=== PATIENT | male | born 1975 | race African-American/Black ===

== ENCOUNTER 2017-03-06 07:09 | Emergency (ER) | payer OTHER ==
[2017-03-06 07:14] VITALS: BP 139/80; PULSE 88; TEMP 97.9; BMI 31.4
--- NOTE | 2017-03-06 07:35 | PDOC ---
History of Present Illness - General Chief Complaint: Pain, Acute Stated Complaint: LEFT HIP PIAN Time Seen by Provider: 03/06/17 07:24 - History of Present Illness Initial Comments: 41 year old healthy male with PMH of HTN and HLD presenting with left hip pain / tightness since 18:00 on the day before presentation. He has had this pain in the past but never with this severity or length of time. His pain always happen after his long car rides (typically about 70 miles per day in a smaller vehicle - [employer]- and the gentleman is approximately 6'2"). He denies any hip trauma or specific inciting event except for his typical 70 mile ride yesterday. He did not try any medicine, stretching, or heat therapy. He is on a Statin for his HLD but has been on this for the past 3-4 months and denies any myalgias besides his hip pain. Denies fevers, chills, nausea, vomiting, change in urine, chest pain, or other symptoms. 03/06/17 08:00 Past History - Past Medical History Allergies/Adverse Reactions: Allergies Allergy/AdvReac Type Severity Reaction Status Date / Time No Known Allergies Allergy Verified 03/06/17 07:11 Home Medications: Ambulatory Orders Atorvastatin Ca [Lipitor] 20 mg PO HS 03/06/17 Hydrochlorothiazide [Hctz -] 25 mg PO DAILY 03/06/17 Naproxen [Naprosyn -] 500 mg PO BID PRN #20 tablet 03/06/17 HTN: Yes Hypercholesterolemia: Yes - Psycho/Social/Smoking Cessation Hx Anxiety: No Suicidal Ideation: No Smoking History: Current every day smoker Have you smoked in the past 12 months: Yes Number of Cigarettes Smoked Daily: 2 Information on smoking cessation initiated: No Hx Alcohol Use: No Drug/Substance Use Hx: No Substance Use Type: None Review of Systems - Review of Systems Constitutional: No: Chills, Diaphoresis, Fever HEENTM: No: Blurred Vision, Recent change in vision, Double Vision Respiratory: No: Cough, Shortness of Breath Cardiac (ROS): No: Chest Pain, Edema, Chest Tightness ABD/GI: No: Constipated, Diarrhea, Nausea, Vomiting : No: Burning, Dysuria, Discharge Musculoskeletal: Yes: Muscle Pain. No: Back Pain, Joint Pain Integumentary: No: Bruising, Erythema, Lesions Neurological: No: Numbness, Paresthesia, Pre-Existing Deficit, Tremors *Physical Exam - Vital Signs Last Vital Signs Temp Pulse Resp BP Pulse Ox 97.9 F 88 18 139/80 98 03/06/17 07:11 03/06/17 07:11 03/06/17 07:11 03/06/17 07:11 03/06/17 07:11 - Physical Exam General Appearance: Yes: Nourished, Appropriately Dressed. No: Apparent Distress HEENT: positive: EOMI, LIANNA, Normal ENT Inspection Neck: positive: Trachea midline, Normal Thyroid, Supple. negative: Tender, Rigid Respiratory/Chest: positive: Lungs Clear, Normal Breath Sounds. negative: Chest Tender, Respiratory Distress, Accessory Muscle Use Cardiovascular: positive: Regular Rhythm, Regular Rate, Edema. negative: S1, S2 Gastrointestinal/Abdominal: positive: Normal Bowel Sounds, Flat, Soft. negative : Tender, Organomegaly Musculoskeletal: positive: Normal Inspection, Other (Full range of motion in left hip but delay of full extension, flexion, abduction, and adduction at the hip due to tighthness at the hip and pain. However, there was ease of movement after initial stretch at hip.). negative: CVA Tenderness, Muscle Spasm Extremity: positive: Normal Inspection, Normal Range of Motion (Per above) Integumentary: positive: Normal Color, Dry Neurologic: positive: Fully Oriented, Alert, Normal Mood/Affect Medical Decision Making - Medical Decision Making Healthy 41 year old male presenting with left hip pain and tightness after a long car ride. this is most likely a tendinitis vs. muscular spasm/ tightness given the pathophysiology of the injury (long car rides in a small ride in a small car). This is possibly myalgias from his statin use but does not quite match the description and given he has had this pain transiently after each long car ride, this is most likely more consistent with a muscular strain/ tendinitis. To further support this, his symptoms resolved after toradol 30 IV. He was discharged with a prescription for Naproxen and same day appointment with his PCP. 03/06/17 09:20 *DC/Admit/Observation/Transfer Diagnosis at time of Disposition: Hip tendinitis Qualifiers: Qualified Code(s): M76.892 - Other specified enthesopathies of left lower limb , excluding foot - Discharge Dispostion Disposition: HOME Condition at time of disposition: Stable - Prescriptions Prescriptions: Naproxen [Naprosyn -] 500 mg PO BID PRN #20 tablet PRN Reason: Pain - Referrals Referrals: Ralph Lynn MD [Staff Physician] - - Patient Instructions Printed Discharge Instructions: Tendonitis (Alternative Therapy), DI for Tendinitis Additional Instructions: Take 500 mg naproxen every 12 hours as needed for pain. Heat pack as needed. Follow up with your doctor and orthopedics. - Attestations Physician Attestion: I, Dr. Meme Maurer, attest that this document has been prepared under my direction and personally reviewed by me in its entirety. I further attest, that it accurately reflects all work, treatment, procedures and medical decision -making performed by me. 03/06/17 09:29
--- NOTE | 2017-03-06 08:15 | PDOC ---
Attending Attestation - Resident Resident Name: Meme Maurer - ED Attending Attestation I have performed the following: I have examined & evaluated the patient, The case was reviewed & discussed with the resident, I agree w/resident's findings & plan, Exceptions are as noted - HPI HPI: 03/06/17 08:10 41-year-old male with past medical history of hypertension, hyperlipidemia presents with left hip pain since yesterday. Patient reports that he was started feel tightness in his left hip worsened with flexion and movement. States that he was stiffening up after he was stepping out of his car. Denies injuries or fall. - Physicial Exam PE: 03/06/17 08:15 GENERAL: Awake, alert, and fully oriented, in no acute distress. HEAD: No signs of trauma EYES: PERRLA, EOMI, sclera anicteric, conjunctiva clear ENT: Auricles normal inspection, hearing grossly normal, nares patent, oropharynx clear without exudates. EXTREMITIES: Normal range of motion, no edema. No clubbing or cyanosis. No cords, erythema, or tenderness. PELVIS: Left proximal hip tender to palpation, likely at proximal insertion site for the quadriceps. No bony tenderness. Reproducible pain with hip flexion. NEUROLOGICAL: Cranial nerves II through XII grossly intact. Normal speech, normal gait SKIN: Warm, Dry, normal turgor, no rashes or lesions noted. - Medical Decision Making 03/06/17 08:18 Vital Signs Temp Pulse Resp BP Pulse Ox 97.9 F 88 18 139/80 98 03/06/17 07:11 03/06/17 07:11 03/06/17 07:11 03/06/17 07:11 03/06/17 07:11 I suspect that this is tendinitis. NSAIDs. Supportive care. Pt has a PMD follow up today. I discussed the physical exam findings, ancillary test results and final diagnoses with the patient. I answered all of the patient's questions. The patient was satisfied with the care received and felt comfortable with the discharge plan and treatment plan. The patient will call their primary care physician within 24 hours to arrange follow-up and will return to the Emergency Department with any new, persistant or worsening symptoms.
[2017-03-06] MEDS ORDERED: KETOROLAC TROMETHAMINE 30 MG/1 ML VIAL IM ONE (08:22)
[2017-03-06] MEDS: KETOROLAC TROMETHAMINE 30 MG/1 ML VIAL IVPUSH ONE ×2 (08:28)
--- NOTE | 2017-03-06 08:28 | PDOC ---
*Physical Exam - Vital Signs Last Vital Signs Temp Pulse Resp BP Pulse Ox 97.9 F 88 18 139/80 98 03/06/17 07:11 03/06/17 07:11 03/06/17 07:11 03/06/17 07:11 03/06/17 07:11 *DC/Admit/Observation/Transfer Diagnosis at time of Disposition: Hip tendinitis Qualifiers: Laterality: left Qualified Code(s): M76.892 - Other specified enthesopathies of left lower limb, excluding foot - Discharge Dispostion Disposition: HOME Condition at time of disposition: Stable Admit: No - Prescriptions Prescriptions: Naproxen [Naprosyn -] 500 mg PO BID PRN #20 tablet PRN Reason: Pain - Referrals Referrals: Ralph Lynn MD [Staff Physician] - - Patient Instructions Printed Discharge Instructions: DI for Tendinitis, Tendonitis (Alternative Therapy) Additional Instructions: Take 500 mg naproxen every 12 hours as needed for pain. Heat pack as needed. Follow up with your doctor and orthopedics.
== END 2017-03-06 08:51 | disposition home or self-care (01) ==
LOC: JER 07:09
PROC: 3E0233Z Introduction of Anti-inflammatory into Muscle, Percutaneous Approach (ICD-10-PCS; principal; 2017-03-06)
DX: M76.892 Other specified enthesopathies of left lower limb, excluding foot (principal); I10 Essential (primary) hypertension; E78.5 Hyperlipidemia, unspecified; F17.210 Nicotine dependence, cigarettes, uncomplicated
CPT/HCPCS: 99282-25

== ENCOUNTER 2018-12-24 22:55 | Emergency (ER) | payer OTHER ==
[2018-12-24 23:07] VITALS: BMI 32.1
--- NOTE | 2018-12-24 23:18 | PDOC ---
History of Present Illness - General Chief Complaint: Chest Pain Stated Complaint: CHEST PAIN Time Seen by Provider: 12/24/18 23:18 History Source: Patient Exam Limitations: No Limitations - History of Present Illness Initial Comments: 12/24/18 23:37 43 yo M with PMhx of HTN presents with 3 day history of chest pain. He describes intermittent 5/10 non radiating substernal chest tightness. Pain is exacerbated by twisting his torso. Alleviated partially by Ibuprofen. 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 He to Ibuprofen that night and pain resolved. Pain free on Wednesday day but returned when he went to bed Wednesday night. Pain unrelated to activity, not relieved by rest or nitro. Never had chest pain like this before. Never seen a emergency crew supervisor , no stress test in past. No ASA today. Not related to food. Denies fever, chills, travel, or sick contacts. Timing/Duration: reports: intermittent Severity/Quality: reports: moderate, tightness Location: reports: substernal Chest Pain Radiation: reports: no radiation Activities at Onset: reports: other (twisting of torso). denies: exertion Prior Chest Pain/Cardiac Workup: denies: No prior chest pain, No prior cardiac workup, Pulmonary Embolism, Stress Test Modifying Factors: improves with: movement Nitro Today/Relief: Yes: no nitro taken today Aspirin Received prior to arrival (Core Measure): Yes: no aspirin today Beta Raffy indicated at this time? (Core Measure): No Associated Symptoms: No: Diaphoresis, Fever/chills, Nausea, Palpitations, Vomiting, Weakness Past History - Travel Traveled outside of the country in the last 30 days: No Close contact w/someone who was outside of country & ill: No - Past Medical History Allergies/Adverse Reactions: Allergies Allergy/AdvReac Type Severity Reaction Status Date / Time No Known Allergies Allergy Verified 12/24/18 23:07 Home Medications: Ambulatory Orders Atorvastatin Ca [Lipitor] 20 mg PO HS 03/06/17 Hydrochlorothiazide [Hctz -] 25 mg PO DAILY 03/06/17 Naproxen [Naprosyn -] 500 mg PO BID PRN #20 tablet 03/06/17 COPD: No CHF: No HTN: Yes Hypercholesterolemia: No - Suicide/Smoking/Psychosocial Hx Smoking History: Unknown if ever smoked Have you smoked in the past 12 months: No Number of Cigarettes Smoked Daily: 2 Information on smoking cessation initiated: No Hx Alcohol Use: No Drug/Substance Use Hx: No Substance Use Type: None Review of Systems - Review of Systems Able to Perform ROS?: Yes Is the patient limited Russian proficient: No Constitutional: No: Chills, Diaphoresis, Fever, Weakness HEENTM: No: Recent change in vision Respiratory: No: Cough, Shortness of Breath, SOB with Exertion Cardiac (ROS): Yes: Chest Tightness. No: Edema, Irregular Heart Rate, Lightheadedness, Palpitations ABD/GI: No: Constipated, Diarrhea, Nausea, Vomiting : No: Burning, Dysuria, Flank Pain Musculoskeletal: No: Back Pain All Other Systems: Reviewed and Negative *Physical Exam - Vital Signs Last Vital Signs Temp Pulse Resp BP Pulse Ox 98.3 F 76 18 123/93 100 12/24/18 23:25 12/24/18 23:25 12/24/18 23:25 12/24/18 23:25 12/24/18 23:25 - Physical Exam General Appearance: Yes: Appropriately Dressed. No: Apparent Distress HEENT: positive: LIANNA, Normal Voice Neck: positive: Trachea midline, Supple Respiratory/Chest: positive: Lungs Clear, Normal Breath Sounds. negative: Respiratory Distress, Accessory Muscle Use Cardiovascular: positive: Regular Rhythm, Regular Rate, S1, S2. negative: Edema , JVD, Murmur Gastrointestinal/Abdominal: positive: Normal Bowel Sounds, Flat, Soft. negative : Guarding, Tenderness, Mass, Hepatomegaly, Spleenomegaly Musculoskeletal: negative: CVA Tenderness Extremity: positive: Normal Range of Motion Integumentary: positive: Normal Color, Dry, Warm Neurologic: positive: family dentist II-XII NML intact, Fully Oriented, Alert, Normal Mood/ Affect, Normal Response, Motor Strength 5/5 ED Treatment Course - LABORATORY CBC & Chemistry Diagram: 12/25/18 00:35 12/25/18 00:35 - ADDITIONAL ORDERS Additional order review: Laboratory Results 12/25/18 12/25/18 01:12 00:35 D-Dimer 266 Sodium 138 Potassium 4.4 Chloride 107 Carbon Dioxide 27 Anion Gap 5 L BUN 17 Creatinine 1.2 Est GFR (CKD-EPI)AfAm 84.13 Est GFR (CKD-EPI)NonAf 72.59 Random Glucose 103 Calcium 9.0 Magnesium 2.1 Total Bilirubin 0.4 AST 20 ALT 27 Alkaline Phosphatase 101 Creatine Kinase 399 H Troponin I < 0.02 Total Protein 7.4 Albumin 3.9 12/25/18 00:35 RBC 4.85 MCV 86.7 MCHC 32.6 RDW 12.9 MPV 8.7 Neutrophils % 45.2 Lymphocytes % 44.5 H Monocytes % 7.5 Eosinophils % 2.5 Basophils % 0.3 - RADIOLOGY Radiology Studies Ordered: Category Date Time Status CHEST PA & LAT [RAD] Stat Radiology 12/25/18 00:24 Taken - Medications Given in the ED: ED Medications Discontinued Medications Generic Name Dose Route Start Last Admin Trade Name Freq PRN Reason Stop Dose Admin Aspirin 162 mg 12/24/18 23:36 12/25/18 00:23 Asa - PO 12/24/18 23:37 162 mg ONCE ONE Administration Medical Decision Making - Medical Decision Making 12/25/18 01:53 43 yo M with PMhx of HTN presents with 3 day history of chest pain. EKG was NSR with no st or t wave abnormalities. D-DImer was negative to r/o PE. Troponin I was negative. Based off heart score patient is low risk and will be discharged home with follow up with PCP next week. Most likely musculoskeletal pain. *DC/Admit/Observation/Transfer Diagnosis at time of Disposition: Musculoskeletal chest pain - Discharge Dispostion Disposition: HOME Condition at time of disposition: Stable Decision to Admit order: No - Referrals - Patient Instructions Printed Discharge Instructions: DI for Chest Pain Additional Instructions: You have been seen today for your chest pain. It has been ruled out that this is a heart issue. Most likely muscle strain. You can take ibuprofen for pain. Please follow up with primary doctor next week. Increase activity as tolerated. Resume heart healthy diet. If symptoms worsen or you develop shortness of breath please return to ER immediately. - Post Discharge Activity
[2018-12-24] MEDS ORDERED: ASPIRIN 81 MG CHEWABLE TABLETS PO ONE (23:36)
[2018-12-25] MEDS ORDERED: ASPIRIN 81 MG CHEWABLE TABLETS ONE (00:11)
[2018-12-25 00:49] LABS: BASO % 0.3 % (0-2.0); EOS % 2.5 % (0-4.5); HEMOGLOBIN 13.7 GM/dL (11.7-16.9); LYMPH % 44.5 % (8-40); MCH 28.3 pg (25.7-33.7); MCHC 32.6 g/dl (32.0-35.9); MEAN CELL VOLUME 86.7 fl (80-96); MEAN PLT VOLUME 8.7 fl (7.5-11.1); MONO % 7.5 % (3.8-10.2); NEUT % 45.2 % (42.8-82.8); PLATELET COUNT 229 K/MM3 (134-434); RBC 4.85 M/mm3 (4.00-5.60); RDW 12.9 % (11.9-15.9); WHITE BLOOD COUNT 6.4 K/mm3 (4.0-10.0)
--- NOTE | 2018-12-25 01:33 | PDOC ---
Documentation entered by Kortney Au SCRIBE, acting as scribe for Erin Ferreira MD. Erin Ferreira MD: This documentation has been prepared by the nashibe, Kortney Au SCRIBE, under my direction and personally reviewed by me in its entirety. I confirm that the documentation accurately reflects all work, treatment, procedures, and medical decision making performed by me. Attending Attestation - Resident Resident Name: Raghav Prieto - ED Attending Attestation I have performed the following: I have examined & evaluated the patient, The case was reviewed & discussed with the resident, I agree w/resident's findings & plan, Exceptions are as noted - HPI HPI: 12/25/18 00:17 Mr Villeda is a 43 yo M who presents to the ER with 3 day history of chest pain. Chest pain began two nights ago Pain is described as intermittent 5/10 non radiating substernal chest tightness. Pain is exacerbated by twisting his torso. 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 Alleviated partially by Ibuprofen. Pain unrelated to activity, not relieved by rest or nitro. Not related to food. Denies fever, chills, travel, or sick contacts. 12/25/18 01:28 - Physicial Exam PE: 12/25/18 00:16 GENERAL: The patient is in no acute distress. ENT: Ears normal, nares patent, oropharynx clear without exudates. Moist mucous membranes. NECK: Normal range of motion, supple LUNGS: Breath sounds equal, clear to auscultation bilaterally. No wheezes, and no crackles. HEART:Regular rate and rhythm, normal S1 and S2 without murmur, rub or gallop. No chest wall tenderness to palpation ABDOMEN: Soft, nontender, normoactive bowel sounds. EXTREMITIES: Normal range of motion, no edema. NEUROLOGICAL: Cranial nerves II through XII grossly intact. Normal speech. No focal neurological deficits. SKIN: Warm, Dry, normal turgor, no rashes or lesions noted. 12/25/18 01:28 - Medical Decision Making 12/25/18 01:28 43 yo M c/o chest pain for the past 2 days Pain worsens with turning to the left Differential includes but is not limited to ACS/cardiac ischemia, pe, pneumonia , pneumothorax, pleural effusion, costochondritis, pericarditis, GERD. Chest pain is not related to leaning forward or backward, less likely pericarditis No cough to suggest pneumonia EKG: Twelve-lead EKG was performed and reviewed by me. There is normal sinus rhythm with a normal rate. The axis is normal. The intervals are normal. There are no ST or T wave abnormalities. Impression: Normal twelve-lead EKG 12/25/18 01:33 CXR - appears normal 12/25/18 02:04 Laboratory Tests 12/25/18 12/25/18 12/25/18 00:35 00:35 01:12 WBC 6.4 Hgb 13.7 Hct 42.0 Plt Count 229 D-Dimer 266 Creatine Kinase 399 H Creatine Kinase Index 0.5 CK-MB (CK-2) 2.1 Troponin I < 0.02 Will plan to discharge to home Motrin for pain No pneumothorax, or pleural effusion Most likely musculoskeletal pain *DC/Admit/Observation/Transfer Diagnosis at time of Disposition: Musculoskeletal chest pain - Discharge Dispostion Disposition: HOME Condition at time of disposition: Stable - Referrals - Patient Instructions Printed Discharge Instructions: DI for Chest Pain Additional Instructions: You have been seen today for your chest pain. It has been ruled out that this is a heart issue. Most likely muscle strain. You can take ibuprofen for pain. Please follow up with primary doctor next week. Increase activity as tolerated. Resume heart healthy diet. If symptoms worsen or you develop shortness of breath please return to ER immediately. - Post Discharge Activity
[2018-12-25 01:44] LABS: ALBUMIN 3.9 g/dl (3.4-5.0); ALK PHOS 101 U/L (45-117); ANION GAP 5 MMOL/L (8-16); BILIRUBIN,TOTAL 0.4 mg/dL (0.2-1); BLOOD UREA NITROGEN 17 mg/dL (7-18); CHLORIDE 107 mmol/L (98-107); CO2 27 mmol/L (21-32); CREATININE 1.2 mg/dL (0.55-1.3); GLUCOSE,RANDOM 103 mg/dL (74-106); MAGNESIUM 2.1 mg/dL (1.8-2.4); POTASSIUM 4.4 mmol/L (3.5-5.1); SGOT/AST 20 U/L (15-37); SGPT/ALT 27 U/L (13-61); SODIUM 138 mmol/L (136-145); TOT PROT 7.4 g/dl (6.4-8.2)
[2018-12-25 02:49] VITALS: BP 130/86; PULSE 73; TEMP 98
--- NOTE | 2018-12-27 12:04 | EKG ---
Test Reason : Blood Pressure : / mmHG Vent. Rate : 079 BPM Atrial Rate : 079 BPM P-R Int : 166 ms QRS Dur : 094 ms QT Int : 374 ms P-R-T Axes : 054 046 045 degrees QTc Int : 428 ms NORMAL SINUS RHYTHM NORMAL ECG NO PREVIOUS ECGS AVAILABLE Confirmed by Bharat Bueno MD ([id number]) on 12/27/2018 12:03:54 PM Referred By: Confirmed By:Bharat Bueno MD
== END 2018-12-25 02:50 | disposition home or self-care (01) ==
LOC: JER 22:55
DX: R07.9 Chest pain, unspecified (principal); I10 Essential (primary) hypertension
CPT/HCPCS: 36415; 71046-TC-FY; 80053; 82550; 82553; 83735; 84484; 85025; 85379; 93005; 93010; 99283-25

== ENCOUNTER 2021-12-24 07:22 | Emergency (ER) | payer OTHER ==
[2021-12-24 08:00] VITALS: BMI 34.2
[2021-12-24 10:10] LABS: BASO % 0.3 % (0-2.0); EOS % 1.8 % (0-4.5); HEMATOCRIT 43.5 % (35.4-49); HEMOGLOBIN 14.2 GM/dL (11.7-16.9); LYMPH % 39.4 % (8-40); MCH 27.9 pg (25.7-33.7); MCHC 32.8 g/dl (32.0-35.9); MEAN CELL VOLUME 85.2 fl (80-96); MEAN PLT VOLUME 8.9 fl (7.5-11.1); NEUT % 50.5 % (42.8-82.8); PLATELET COUNT 243 10^3/uL (134-434); RDW 13.2 % (11.9-15.9); WHITE BLOOD COUNT 5.4 K/mm3 (4.0-10.0)
[2021-12-24 10:23] LABS: PROTHROMBIN TIME (PATIENT) 11.5 SEC (9.7-13.0)
[2021-12-24 10:26] LABS: ACTIVATED PTT 39.3 SECONDS (25.2-36.5)
[2021-12-24 10:40] LABS: BLOOD UREA NITROGEN 12.4 mg/dL (7-18); CALCIUM 8.9 mg/dL (8.5-10.1)
[2021-12-24 10:41] LABS: MAGNESIUM 2.2 mg/dL (1.8-2.4)
[2021-12-24 10:44] VITALS: BP 108/71; PULSE 90; TEMP 97.6
[2021-12-24 10:45] LABS: BILIRUBIN,TOTAL 0.6 mg/dL (0.2-1); TOT PROT 7.5 g/dl (6.4-8.2)
== END 2021-12-24 13:10 | disposition home or self-care (01) ==
LOC: JER 07:22
DX: R07.9 Chest pain, unspecified (principal)
CPT/HCPCS: 36415; 71046-TC-FY; 80053; 83735; 84484; 85025; 85610; 85730; 93005; 93010; 99285-25